=== PATIENT | female | born 1950 | race Caucasian/White ===

== ENCOUNTER 2020-11-16 22:09 | Inpatient (IN) | payer OTHER ==
[2020-11-16] MEDS ORDERED: MORPHINE 4 MG/ML SYR ONE (23:35)
[2020-11-16] MEDS ORDERED: ONDANSETRON 4 MG/2 ML VIAL ONE (23:35)
[2020-11-16] MEDS ORDERED: NA CHLORIDE 0.9% 1,000 ML ONE (23:36)
[2020-11-16] MEDS ORDERED: PANTOPRAZOLE 40 MG INJ ONE (23:36)
[2020-11-17 00:09] LABS: Basophils % 0.3 % (0-1.3); Hematocrit 43.1 % (36.0-45.0); Lymphocytes % 9.3 % (15.3-44.8); MPV 9.8 fL (7.6-11.3); RBC Red Blood Cell Count 5.26 M/uL (3.86-4.86)
[2020-11-17 00:10] LABS: Protime INR 0.98
[2020-11-17 00:24] LABS: ALT/SGPT 26 U/L (12-78); AST/SGOT 17 U/L (15-37); Albumin 4.1 g/dL (3.4-5.0); Alkaline Phosphatase 93 U/L (45-117); BUN Blood Urea Nitrogen 13 mg/dL (7-18); Bicarbonate 30 mmol/L (21-32); Bilirubin Direct 0.2 mg/dL (0-0.2); Bilirubin Total 0.5 mg/dL (0.2-1.0); Glucose Level 155 mg/dL (74-106); Lipase 148 U/L (73-393); Magnesium 2.1 mg/dL (1.8-2.4); NT PRO-BNP 44 pg/mL (<125); Potassium 3.5 mmol/L (3.5-5.1); Sodium Level 141 mmol/L (136-145); Troponin (Emerg Dept Use Only) < 0.02 ng/mL (0.0-0.045)
[2020-11-17 02:23] LABS: Blood Morphology Comment NOT SEEN (NOT SEEN); Platelet Estimate ADEQ
--- NOTE | 2020-11-17 02:24 | EDPHYS ---
Physician Documentation [facility] Name: Talisha Farr Age: 70 yrs Sex: Female : 1950 Arrival Date: 11/16/2020 Time: 22:12 Bed 15 Private MD: ED Physician Jaya Catalan HPI: 11/16 23:06 This 70 yrs old Female presents to ER via Wheelchair with complaints of Upper marion Abdmonial Pain. 23:06 The patient presents with abdominal pain in the epigastric area, in the upper abdomen. marion Onset: The symptoms/episode began/occurred just prior to arrival. The symptoms radiate to Associated signs and symptoms: Pertinent positives: nausea and vomiting. The symptoms are described as burning, constant. Modifying factors: The symptoms are alleviated by nothing, the symptoms are aggravated by food. Severity of pain: At its worst the pain was moderate in the emergency department the pain is unchanged. The patient has not experienced similar symptoms in the past. Historical: - Allergies: 22:26 Codeine; bb - Home Meds: 22:26 None [Active]; bb - PMHx: 22:26 None; bb - PSHx: 22:26 Hysterectomy; bb - Immunization history:: Adult Immunizations up to date. - Social history:: Smoking status: Patient denies any tobacco usage or history of. Patient uses alcohol, but reports only rare drinking. Patient/guardian denies using street drugs. - Family history:: not pertinent. ROS: 23:06 Constitutional: Negative for fever, chills, and weight loss, Eyes: Negative for injury, marion pain, redness, and discharge, ENT: Negative for injury, pain, and discharge, Neck: Negative for injury, pain, and swelling, Cardiovascular: Negative for chest pain, palpitations, and edema, Respiratory: Negative for shortness of breath, cough, wheezing, and pleuritic chest pain, Back: Negative for injury and pain, : Negative for injury, bleeding, discharge, and swelling, MS/Extremity: Negative for injury and deformity, Skin: Negative for injury, rash, and discoloration, Neuro: Negative for headache, weakness, numbness, tingling, and seizure, Psych: Negative for depression, anxiety, suicide ideation, homicidal ideation, and hallucinations, Allergy/Immunology: Negative for hives, rash, and allergies, Endocrine: Negative for neck swelling, polydipsia, polyuria, polyphagia, and marked weight changes. 23:06 Abdomen/GI: Positive for abdominal pain, nausea and vomiting, abdominal cramps, of the epigastric area and right upper quadrant. Exam: 23:06 Constitutional: This is a well developed, well nourished patient who is awake, alert, mairon and in no acute distress. Head/Face: Normocephalic, atraumatic. Eyes: Pupils equal round and reactive to light, extra-ocular motions intact. Lids and lashes normal. Conjunctiva and sclera are non-icteric and not injected. Cornea within normal limits. Periorbital areas with no swelling, redness, or edema. ENT: Nares patent. No nasal discharge, no septal abnormalities noted. Tympanic membranes are normal and external auditory canals are clear. Oropharynx with no redness, swelling, or masses, exudates, or evidence of obstruction, uvula midline. Mucous membranes moist. Neck: Trachea midline, no thyromegaly or masses palpated, and no cervical lymphadenopathy. Supple, full range of motion without nuchal rigidity, or vertebral point tenderness. No Meningismus. Chest/axilla: Normal chest wall appearance and motion. Nontender with no deformity. No lesions are appreciated. Cardiovascular: Regular rate and rhythm with a normal S1 and S2. No gallops, murmurs, or rubs. Normal PMI, no JVD. No pulse deficits. Respiratory: Lungs have equal breath sounds bilaterally, clear to auscultation and percussion. No rales, rhonchi or wheezes noted. No increased work of breathing, no retractions or nasal flaring. Back: No spinal tenderness. No costovertebral tenderness. Full range of motion. Female : Normal external genitalia. Skin: Warm, dry with normal turgor. Normal color with no rashes, no lesions, and no evidence of cellulitis. MS/ Extremity: Pulses equal, no cyanosis. Neurovascular intact. Full, normal range of motion. Neuro: Awake and alert, GCS 15, oriented to person, place, time, and situation. Cranial nerves II-XII grossly intact. Motor strength 5/5 in all extremities. Sensory grossly intact. Cerebellar exam normal. Normal gait. Psych: Awake, alert, with orientation to person, place and time. Behavior, mood, and affect are within normal limits. 23:06 Abdomen/GI: Inspection: distension, Bowel sounds: active, Palpation: mild abdominal tenderness, moderate abdominal tenderness, in the epigastric area, right upper quadrant and left upper quadrant, Liver: no appreciated palpable abnormalities, Hernia: not appreciated. 23:48 ECG was reviewed by the Attending Physician. [facility] Vital Signs: 22:24 BP 160 / 76; Pulse 58; Resp 16 S; Temp 97.6(O); Pulse Ox 98% on R/A; Weight 74.84 kg bb (R); Height 5 ft. 5 in. (165.10 cm) (R); Pain 10/10; 23:30 BP 143 / 86; Pulse 57; Resp 17; Pulse Ox 98% on R/A; jb4 11/17 02:30 BP 168 / 78; Pulse 68; Resp 16; Pulse Ox 95% on R/A; jb4 04:30 BP 165 / 78; Pulse 72; Resp 16; Pulse Ox 94% on R/A; jb4 10:06 BP 123 / 74; Pulse 72; Resp 16; Pulse Ox 94% on R/A; Pain 3/10; bw 11/16 22:24 Body Mass Index 27.46 (74.84 kg, 165.10 cm) bb MDM: 11/16 22:51 Patient medically screened. [facility] 23:14 Differential diagnosis: appendicitis, cholecystitis, Cholelithiasis, diverticulitis, marion gastritis, gastroesophageal reflux disease, Mesenteric ischemia or infarction, non-specific abd pain, pancreatitis, Peptic Ulcer Disease, Pyelonephritis, urinary tract infection. Data reviewed: vital signs, nurses notes, old medical records, lab test result(s), EKG, radiologic studies, CT scan, plain films. Data interpreted: shelter monitor: rate is 58 beats/min, rhythm is regular, Pulse oximetry: on room air is 98 %. Test interpretation: by ED physician or midlevel provider: ECG, plain radiologic studies. Counseling: I had a detailed discussion with the patient and/or guardian regarding: the historical points, exam findings, and any diagnostic results supporting the discharge/admit diagnosis, lab results, radiology results. 11/16 23:04 Order name: Basic Metabolic Panel [facility] 11/16 23:04 Order name: CBC with Diff [facility] 11/16 22: Order name: LFT's [facility] 03/08 23:04 Order name: Magnesium [facility] 11/16 23:04 Order name: NT PRO-BNP [facility] 11/16 23:04 Order name: PT-INR [facility] 11/16 23:04 Order name: Troponin (emerg Dept Use Only) [facility] 11/16 23:04 Order name: Lipase [facility] 11/16 23:04 Order name: Basic Metabolic Panel; Complete Time: 00:30 EDMS 11/16 23:04 Order name: CBC with Automated Diff EDRI 11/16 23:04 Order name: Liver (Hepatic) Function; Complete Time: 00:30 EDMS 11/16 23:04 Order name: Magnesium; Complete Time: 00:30 EDMS 11/16 23:04 Order name: NT PRO-BNP; Complete Time: 00:30 EDMS 11/16 23:04 Order name: XRAY Chest (1 view) [facility] 11/16 23:04 Order name: EKG; Complete Time: 23:05 [facility] 11/16 23:04 Order name: CT Abd/Pelvis - IV Contrast Only [facility] 11/16 23:04 Order name: Protime (+INR); Complete Time: 00:30 EDMS 11/16 23:04 Order name: Troponin (Emerg Dept Use Only); Complete Time: 00:30 EDMS 11/16 23:04 Order name: Lipase; Complete Time: 00:30 EDMS 11/17 00:24 Order name: Manual Differential EDRI 11/17 00:54 Order name: SARS-COV-2 RT PCR; Complete Time: 02:01 EDMS 11/17 07:12 Order name: Troponin I EDMS 11/17 07:21 Order name: Liver (Hepatic) Function EDMS 11/17 07:21 Order name: Lipase EDRI 11/16 23:04 Order name: Cardiac monitoring; Complete Time: 23:57 [facility] 11/16 23:04 Order name: EKG - Nurse/Tech; Complete Time: 23:58 [facility] 11/16 23:04 Order name: IV Saline Lock; Complete Time: 23:58 [facility] 11/16 23:04 Order name: Labs collected and sent; Complete Time: 23:58 [facility] 11/16 23:04 Order name: O2 Per Protocol; Complete Time: 23:58 [facility] 11/16 23:04 Order name: O2 Sat Monitoring; Complete Time: 23:58 [facility] 11/17 02:29 Order name: CONS Physician Consult; Complete Time: 07:46 EDMS EC:48 Rate is 54 beats/min. Rhythm is regular. QRS Cable is Normal. OH interval is normal. QRS marion interval is normal. QT interval is normal. No Q waves. T waves are Normal. No ST changes noted. Clinical impression: Sinus bradycardia and No evidence of ischemia. Interpreted by me. Reviewed by me. Administered Medications: 23:54 Drug: ProTONIX 40 mg Route: IVP; Site: right antecubital; jb4 23:56 Drug: NS 0.9% 1000 ml Route: IV; Rate: 1 bolus; Site: right antecubital; jb4 23:56 Drug: Zofran (Ondansetron) 4 mg Route: IVP; Site: right antecubital; jb4 23:58 Drug: morphine 4 mg Route: IVP; Site: right antecubital; jb4 11/17 02:42 Drug: Zosyn 3.375 grams Route: IVPB; Infused Over: 60 mins; Site: right antecubital; jb4 Disposition: 11/17/20 02:23 Hospitalization ordered by Rocky Dietrich for Inpatient Admission. Preliminary diagnosis are Abdominal tenderness, Cholecystitis, Cholelithiasis. - Bed requested for Telemetry/MedSurg (Inpatient). - Status is Inpatient Admission. hb - Condition is Stable. - Problem is new. - Symptoms have improved. Signatures: Dispatcher [employer] [facility] Candace Vega Jaya Catalan MD MD cha Ballard, Brenda, Bessie Paulino RN, RN RN Mattie Dalton RN RN Rocky Ross, BRIGITTE RN jb4 Corrections: (The following items were deleted from the chart) 00:08 0308 23:05 CORONAVIRUS+MR.LAB.BRZ ordered. EDRI EDRI 11/17 03:20 02:23 Hospitalization Ordered by Rocky Dietrich MD for Inpatient Admission. Preliminary cg diagnosis is Abdominal tenderness; Cholecystitis; Cholelithiasis. Bed requested for Telemetry/MedSurg (Inpatient). Status is Inpatient Admission. Condition is Stable. Problem is new. Symptoms have improved. marion 08:56 03:20 11/17/2020 02:23 Hospitalization Ordered by Rocky Dietrich MD for Inpatient bd Admission. Preliminary diagnosis is Abdominal tenderness; Cholecystitis; Cholelithiasis. Bed requested for [facility] ER HOLD. Status is Inpatient Admission. Condition is Stable. Problem is new. Symptoms have improved. cg 10:32 08:56 11/17/2020 02:23 Hospitalization Ordered by Rocky Dietrich MD for Inpatient hb Admission. Preliminary diagnosis is Abdominal tenderness; Cholecystitis; Cholelithiasis. Bed requested for Telemetry/MedSurg (Inpatient). Status is Inpatient Admission. Condition is Stable. Problem is new. Symptoms have improved. bd
--- NOTE | 2020-11-17 02:24 | ER ---
Nurse's Notes [facility] Name: Talisha Frar Age: 70 yrs Sex: Female : 1950 Arrival Date: 11/16/2020 Time: 22:12 Bed 15 Private MD: Diagnosis: Abdominal tenderness;Cholecystitis;Cholelithiasis Presentation: 11/16 22:24 Chief complaint: Patient states: she has been feeling ill today then tonight she bb started having upper abdominal pain and vomiting since approx 1900. Coronavirus screen: At this time, the client does not indicate any symptoms associated with coronavirus-19. Ebola Screen: No symptoms or risks identified at this time. Initial Sepsis Screen: Does the patient meet any 2 criteria? No. Patient's initial sepsis screen is negative. Does the patient have a suspected source of infection? No. Patient's initial sepsis screen is negative. Risk Assessment: Do you want to hurt yourself or someone else? Patient reports no desire to harm self or others. Onset of symptoms was November 16, 2020. 22:24 Method Of Arrival: Wheelchair bb 22:24 Acuity: WILLIAMS 3 bb Historical: - Allergies: 22:26 Codeine; bb - Home Meds: 22:26 None [Active]; bb - PMHx: 22:26 None; bb - PSHx: 22:26 Hysterectomy; bb - Immunization history:: Adult Immunizations up to date. - Social history:: Smoking status: Patient denies any tobacco usage or history of. Patient uses alcohol, but reports only rare drinking. Patient/guardian denies using street drugs. - Family history:: not pertinent. Screenin:50 Abuse screen: Denies threats or abuse. Nutritional screening: No deficits noted. jb4 Tuberculosis screening: No symptoms or risk factors identified. Fall Risk None identified. Assessment: 22:50 General: Appears in no apparent distress. uncomfortable, Behavior is calm, cooperative, jb4 appropriate for age. Pain: Complains of pain in epigastric area Pain radiates to back Pain currently is 10 out of 10 on a pain scale. Also complains of nausea, vomiting. Neuro: Level of Consciousness is awake, alert, obeys commands, Oriented to person, place, time, situation. Cardiovascular: Patient's skin is warm and dry. Respiratory: Airway is patent Respiratory effort is even, unlabored, Respiratory pattern is regular, symmetrical. GI: Abdomen is round non-distended, Reports upper abdominal pain, nausea, vomiting. : No signs and/or symptoms were reported regarding the genitourinary system. EENT: No signs and/or symptoms were reported regarding the EENT system. Derm: Skin is intact, Skin is pink, warm \T\ dry. Musculoskeletal: Circulation, motion, and sensation intact. Range of motion: intact in all extremities. 11/17 00:00 Reassessment: Patient appears in no apparent distress at this time. Patient and/or jb4 family updated on plan of care and expected duration. Pain level reassessed. Patient is alert, oriented x 3, equal unlabored respirations, skin warm/dry/pink. 01:00 Reassessment: Patient appears in no apparent distress at this time. Patient and/or jb4 family updated on plan of care and expected duration. Pain level reassessed. Patient is alert, oriented x 3, equal unlabored respirations, skin warm/dry/pink. 02:00 Reassessment: Patient appears in no apparent distress at this time. Patient and/or jb4 family updated on plan of care and expected duration. Pain level reassessed. Patient is alert, oriented x 3, equal unlabored respirations, skin warm/dry/pink. Patient states feeling better. 03:00 Reassessment: Patient appears in no apparent distress at this time. Patient and/or jb4 family updated on plan of care and expected duration. Pain level reassessed. Patient is alert, oriented x 3, equal unlabored respirations, skin warm/dry/pink. 04:00 Reassessment: Patient appears in no apparent distress at this time. Patient and/or jb4 family updated on plan of care and expected duration. Pain level reassessed. PT is resting in bed with eyes closed, respirations even and unlabored with no s/s of pain or distress noted. PT admitted to ER hold. 10:06 Reassessment: Patient appears in no apparent distress at this time. Patient and/or bw family updated on plan of care and expected duration. Pain level reassessed. Patient is alert, oriented x 3, equal unlabored respirations, skin warm/dry/pink. Vital Signs: 11/16 22:24 BP 160 / 76; Pulse 58; Resp 16 S; Temp 97.6(O); Pulse Ox 98% on R/A; Weight 74.84 kg bb (R); Height 5 ft. 5 in. (165.10 cm) (R); Pain 10/10; 23:30 BP 143 / 86; Pulse 57; Resp 17; Pulse Ox 98% on R/A; jb4 11/17 02:30 BP 168 / 78; Pulse 68; Resp 16; Pulse Ox 95% on R/A; jb4 04:30 BP 165 / 78; Pulse 72; Resp 16; Pulse Ox 94% on R/A; jb4 10:06 BP 123 / 74; Pulse 72; Resp 16; Pulse Ox 94% on R/A; Pain 3/10; bw 11/16 22:24 Body Mass Index 27.46 (74.84 kg, 165.10 cm) bb ED Course: 11/16 22:12 Patient arrived in ED. cl3 22:25 Triage completed. bb 22:26 Arm band placed on Patient placed in an exam room, on a stretcher, on pulse oximetry. bb Family accompanied patient. 22:50 Patient has correct armband on for positive identification. Placed in gown. Bed in low jb4 position. Call light in reach. Side rails up X 1. clinical business manager on. Pulse ox on. NIBP on. 22:51 Jaya Catalan MD is Attending Physician. [facility] 23:10 Rocky Ross, RN is Primary Nurse. 4 23:28 XRAY Chest (1 view) In Process Unspecified. EDMS 23:50 Initial lab(s) drawn, by ca, sent to lab. Inserted saline lock: 18 gauge in right jb4 antecubital area, using aseptic technique. Blood collected. 11/17 01:15 CT Abd/Pelvis - IV Contrast Only In Process Unspecified. EDMS 02:13 Rocky Dietrich MD is Hospitalizing Provider. [facility] 04:00 No provider procedures requiring assistance completed. Patient admitted, IV remains in jb4 place. Administered Medications: 11/16 23:54 Drug: ProTONIX 40 mg Route: IVP; Site: right antecubital; jb4 23:56 Drug: NS 0.9% 1000 ml Route: IV; Rate: 1 bolus; Site: right antecubital; jb4 23:56 Drug: Zofran (Ondansetron) 4 mg Route: IVP; Site: right antecubital; jb4 23:58 Drug: morphine 4 mg Route: IVP; Site: right antecubital; jb4 11/17 02:42 Drug: Zosyn 3.375 grams Route: IVPB; Infused Over: 60 mins; Site: right antecubital; jb4 Outcome: 02:23 Decision to Hospitalize by Provider. marion 04:00 Admitted to ER Hold. Please see [facility] for further documentation. jb4 04:00 Condition: stable 04:00 Discharge instructions given to patient, Instructed on the need for admit, Demonstrated understanding of instructions. 10:32 Patient left the ED. Signatures: Dispatcher [employer] EDMS Jaya Caatlan MD MD cha Ballard, Brenda, RN RN Mattie Klein RN RN Rocky Ross RN RN jb4 Lewis, Charde cl3 Lanny Kinsey RN RN
[2020-11-17] MEDS ORDERED: PIPER/TAZO/NS 3.375gm 3.375 GM/100 ML BAG ONE ×2 (02:39→08:51)
[2020-11-17] MEDS ORDERED: SODIUM CHLORIDE 0.9% 10ML INJ IV PRN (04:54)
[2020-11-17] MEDS ORDERED: ACETAMINOPHEN 325 MG TABLET PO PRN (04:54)
[2020-11-17] MEDS: NA CHLORIDE 0.9% 1,000 ML IV SCH ×4 (04:54→19:39)
[2020-11-17] MEDS: MORPHINE 4 MG/ML SYR IV PRN ×2 (05:13→08:56)
[2020-11-17] MEDS: ONDANSETRON 4 MG/2 ML VIAL IV PRN ×2 (05:13→11:47)
[2020-11-17] MEDS ORDERED: MORPHINE 4 MG/ML SYR ONE ×2 (05:18→08:50)
[2020-11-17] MEDS ORDERED: NA CHLORIDE 0.9% 1,000 ML ONE (05:19)
[2020-11-17] MEDS ORDERED: ONDANSETRON 4 MG/2 ML VIAL ONE ×2 (05:19→14:05)
[2020-11-17 06:26] VITALS: BMI 27.4
[2020-11-17 07:21] LABS: Albumin 3.9 g/dL (3.4-5.0); Bilirubin Direct 0.1 mg/dL (0-0.2); Bilirubin Total 0.5 mg/dL (0.2-1.0); Protein, Total 7.9 g/dL (6.4-8.2)
--- NOTE | 2020-11-17 07:48 | RAD REPORT ---
EXAM DESCRIPTION: Mayra Single View11/16/2020 11:28 pm CLINICAL HISTORY: Abdominal pain COMPARISON: none FINDINGS: The lungs appear clear of acute infiltrate. The heart is normal size IMPRESSION: No acute abnormalities displayed
[2020-11-17] MEDS ORDERED: PANTOPRAZOLE 40 MG INJ ONE (08:50)
[2020-11-17] MEDS ORDERED: NA CHLORIDE 0.9% 0 ML ONE (08:50)
[2020-11-17] MEDS: PANTOPRAZOLE 40 MG INJ IVP SCH (08:55)
[2020-11-17] MEDS: PIPER/TAZO/NS 3.375gm 3.375 GM/100 ML BAG IVPB SCH ×4 (08:56→18:25)
--- NOTE | 2020-11-17 11:33 | CON ---
Date of Consultation: 11/17/2020 Reason For Consultation: Cardiac clearance for cholecystectomy by Dr. Dietrich. History Of Present Illness: Ms. Farr is a 70-year-old white woman. She came in this morning gallstone, white count of for surgery today by Dr. Dietrich. I was asked to see her for cardiac clearance. The patient denied any cardiac history. She does not have high blood pressur e, diabetes, dyslipidemia. Denies any family history of heart disease. Denies tobacco use. Her [address] pain was midepigastric, radiating to the right quadrant, consistent with her cholecystitis. Had s ome nausea, but denied PND, orthopnea, pedal edema, palpitation, or syncope. Has had some chills, bu t no fever. By the time I saw her, her chest x-ray was normal, her EKG was unremarkable and troponin is negative. Past Medical History: Negative. Allergies: SHE IS ALLERGIC TO CODEINE. Review of Systems: Negative. Social History: Negative. Family History: Negative. Medications: At home were none. Physical Examination: General: Very pleasant lady. Vital Signs: Stable, afebrile. HEENT: Negative. Neck: Supple with no bruit. Chest: Clear to auscultation and percussion. Cardiac: Revealed a regular rhythm and rate. No murmurs, gallops, or rubs. Abdomen: Tender in the right upper quadrant. Extremities: No clubbing, cyanosis, or edema in extremities. Impression And Plan: This is a patient, who is 70. No past medical history. No cardiac history. N o cardiac symptoms. Normal physical examination, normal x-ray, normal troponin, unremarkable EKG. I think she is at low risk for perioperative mortality. I will clear the patient for surgery. I will be available for questions if the need arises. JEWEL/ELISE Voice ID: [id number] Report ID: [id number]
--- NOTE | 2020-11-17 11:58 | RAD REPORT ---
EXAM DESCRIPTION: CT - Abdomen Pelvis W Contrast - 11/17/2020 6:52 am COMPARISON: None. CLINICAL HISTORY: [facility] MAIN ABD PAIN TECHNIQUE: CT of the abdomen and pelvis was acquired with IV contrast material. Coronal and sagitt al reconstructions were obtained. Automated exposure control was utilized on this examination as a dose lowering technique. FINDINGS: Lung bases: A small calcified granuloma is noted in the right middle lobe. Liver: A 1.4 cm enhancing focus is noted in hepatic segment four on series 501 image 18. This appears to have portal and hepatic venous connections. Gallbladder and biliary: Multiple hypodense gallstones are noted. Pericholecystic fluid is noted. Mil dly dilated common bile duct measuring 9 mm. An intrahepatic biliary ductal dilatation is also noted. Pancreas: Normal. Spleen: Normal. Adrenal glands: Normal adrenal glands. Kidneys: Normal kidneys Stomach and Small Bowel: Moderate-sized hiatal hernia. Normal small bowel. Urinary bladder: Normal. Uterus and Adnexa: The uterus is absent or atrophic. Colon and Appendix: Moderate sigmoid diverticulosis is noted. No evidence of appendicitis. Retroperitoneum and lymph nodes: Normal. Vascular: Mild atherosclerosis. Peritoneal cavity: No ascites or free air. Musculoskeletal and soft tissues: Soft tissues are unremarkable. Lumbar spondylosis is present. No ag gressive bone lesions. No compression fracture. IMPRESSION: 1. Cholelithiasis with pericholecystic fluid and mild biliary ductal dilatation. These f indings could be seen with acute cholecystitis in the appropriate clinical setting. 2. A 1.4 cm enhancing lesion of hepatic segment four is favored to represent a vascular malformation with portosystemic shunt. Hemangioma and perfusion anomalies are alternative differential diagnoses. Neoplasm is less likely. 3. Moderate-sized hiatal hernia. 4. Moderate sigmoid diverticulosis. Electronically signed by: Jared Griffith MD 11/17/2020 1:56 AM [employer] SPECIALIST Due to temporary technical issues with the PACS/Fluency reporting system, reports are being signed by the in house radiologist without review as a courtesy to ensure prompt reporting. The interpreting r adiologist is fully responsible for the content of the report.
[2020-11-17] MEDS ORDERED: Ringers Lactate 1,000 ML IV ONE ×2 (13:46→15:13)
--- NOTE | 2020-11-17 14:03 | P.HP ---
Date of Service: 11/17/20
[2020-11-17] MEDS ORDERED: FENTANYL CITR 100 MCG/2 ML ONE (14:04)
[2020-11-17] MEDS ORDERED: ROCURONIUM 50 MG/5 ML VIAL IV ONE (14:05)
[2020-11-17] MEDS ORDERED: MIDAZOLAM HCL 2 MG/2 ML INJ ONE (14:05)
[2020-11-17] MEDS ORDERED: GLYCOPYRROLATE 0.2 MG/ML SYR ONE ×3 (14:05→15:55)
[2020-11-17] MEDS ORDERED: dexAMETHasone 10 MG/ML VIAL ONE (14:05)
[2020-11-17] MEDS ORDERED: LIDOCAINE 1% MPF 2 ML AMPULE ONE (14:05)
[2020-11-17] MEDS ORDERED: PROMETHAZINE INJ 25 MG/ML AMP ONE (14:05)
[2020-11-17] MEDS ORDERED: propofoL 200 MG/20 ML VIAL IV ONE (14:05)
[2020-11-17] MEDS ORDERED: KETOROLAC 30 MG/ML INJ ONE (15:49)
--- NOTE | 2020-11-17 15:52 | P.OP ---
Preoperative diagnosis: Acute cholecystitis with cholelithiasis Postoperative diagnosis: The same Primary procedure: Laparoscopic cholecystectomy Secondary procedure: Cholangiogram Other procedure(s): A Beto block Anesthesia: General Estimated blood loss: Less than 10 cc Specimen: 1 gallbladder and contents Operative Technique: The patient brought the operating room placed supine on the table or after the induction of adequate general endotracheal anesthesia the area of the abdomen was prepped with a DuraPrep solution and she is draped in usual aseptic manner a subumbilical incision was made this brought down through the skin and subcutaneous tissue. The Visiport was now used to enter the peritoneal cavity and created pneumoperitoneum to approximately 12 mm of mercury. Under direct vision a 5 mm trocar was placed in the upper midline, and 2 other 5 mm trocars on the right lateral side of the abdomen with the patient place a river in reverse Trendelenburg and rolled to the left were able to visualize right upper quadrant PC a rather intense inflammatory process occurring underneath the right lobe of the liver. The omentum was markedly adherent to the gallbladder itself you could tell being for a missed attachments as fluid could be seen between the peritoneal surfaces on the actual gallbladder itself at this point a Beto block was done of the anterior abdominal wall 0.25% Marcaine was used approximately 10 cc in total. The gallbladder was now aspirated by using a large aspirating needle . Thick bilious fluid with crystals were seen in this the fluid. The gallbladder now having being decompressed we could find a place a grasper on the fundus. Elevating the gallbladder showed these omental adhesions adherent to the serosal surface. There were markedly edematous. There were gently taken down using both blunt sharp dissection as well as judicious use of electro cautery. We identified Caroline's pouch. Gentle dissection allowed us to expose the cystic duct. We could see that the common bile duct was quite generous in size turned our dissection and we stayed well away from it. We finally obtained the critical view after applying lateral traction. The cystic duct and artery having been identified the cystic duct was gently palpated with a dissected to ensure there were no stones in the cystic duct itself. A clip was now placed between the gallbladder and the cystic duct. An opening was made into the cystic duct through which we obtained a normal intraoperative cholangiogram. The dye flowed freely both into the distal portion of the common bile duct and into the duodenum but also we were able to pressure injected and demonstrate the upper radicals. At this point the catheter was removed. The distal portion of the cystic duct was clipped with 2 clips to secure it. The cystic artery was dealt with in a similar fashion. The cystic duct was now fully transected. Electro cautery was used to divide the cystic artery. We now dissect the gallbladder free from the liver bed, placed into an Endo-Catch attention to bring it out through the umbilical trocar site because the amount of edema in this area, it was necessary at the emboli kiss. The specimen itself had difficulty trans reversing the skin incision. This was widened using 11 blade. Attention was now turned back towards the abdominal cavity. The right upper quadrant was inspected. It was irrigated with a copious amount of saline solution. The patient was now placed back flat on the OR table. Irrigating fluid was aspirated from the peritoneal cavity. Attention was turned back towards the emboli kiss. It was necessary to place 4 absorbable sutures at the level of the emboli kiss to approximate the defect. These were done using the Endo Stitch. At this point the pneumoperitoneum was now collapsed, this trocars removed, and tenzin applied to the skin. At the end of the procedure she was stable when sent to the recovery room. Needle sponge instrument count were reported as correct. Complications: None Transferred to: Recovery Room Condition: Good
[2020-11-17] MEDS ORDERED: NEOSTIGMINE 1 MG/ML -5 ML ONE (15:55)
--- NOTE | 2020-11-17 16:01 | RAD REPORT ---
EXAM DESCRIPTION: RAD - Cholangiogram Oper-Xray Or - 11/17/2020 3:53 pm FINDINGS: Three portable C-arm views were submitted from fluoroscopic assisted intraoperative cholan giogram. Assessment is limited when only selected sequences are available. Correlation is needed with findings during real-time assessment. Fluoro time was 0.2 minutes. Cumulative dose was 8.05 mGy.
[2020-11-18] MEDS: PIPER/TAZO/NS 3.375gm 3.375 GM/100 ML BAG IVPB SCH ×2 (00:16→08:42)
--- NOTE | 2020-11-18 05:05 | EKG ---
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
[2020-11-18] MEDS: NA CHLORIDE 0.9% 1,000 ML IV SCH (05:12)
[2020-11-18] MEDS: PANTOPRAZOLE 40 MG INJ IVP SCH (08:41)
[2020-11-18 10:54] VITALS: O2SAT 95
[2020-11-18 12:04] VITALS: BP 143/86; TEMP 97.6
--- NOTE | 2020-11-18 14:30 | P.DS ---
Admission Date: 11/18/20 Discharge Date: 11/18/20 Disposition: ROUTINE DISCHARGE Discharge Condition: GOOD Reason for Admission: Acute Postoperative abdominal pain Procedures: Laparoscopic cholecystectomy with intraoperative cholangiogram, Beto block Brief History of Present Illness: The patient has been ill for the last few months. She is had intermittent bouts of right upper quadrant abdominal pain a severe bout which was unrelenting and she came to the emergency room for evaluation treatment. Hospital Course: The patient was evaluated in the emergency room. She was found have acute on chronic cholecystitis with cholelithiasis. There was a question of possible common bile duct dilatation. She was admitted for IV fluids antibiotics, and pain control. She was evaluated the following day and taken to the operating room for a laparoscopic cholecystectomy with intraoperative cholangiogram. The patient tolerated the procedure well, and the cholangiogram was negative. Today she feels 100% better, has been up ambulating, tolerating a diet, and her pain is controlled without any medication (patient did have a Beto block). She has been deemed fit for discharge. Vital Signs/Physical Exam: Temp Pulse Resp BP Pulse Ox 97.6 F 63 18 143/86 H 97 11/18/20 12:00 11/18/20 12:00 11/18/20 12:00 11/18/20 12:00 11/18/20 12:00 Gastrointestinal: Other (Incisions are clean and dry) Laboratory Data at Discharge: WBC 11.10 K/uL (4.3-10.9) H 11/16/20 23:50 Hgb 14.0 g/dL (12.0-15.0) 11/16/20 23:50 Hct 43.1 % (36.0-45.0) 11/16/20 23:50 Plt Count 200 K/uL (152-406) 11/16/20 23:50 PT 11.3 SECONDS (9.5-12.5) 11/16/20 23:50 INR 0.98 11/16/20 23:50 Sodium 141 mmol/L (136-145) 11/16/20 23:50 Potassium 3.5 mmol/L (3.5-5.1) 11/16/20 23:50 BUN 13 mg/dL (7-18) 11/16/20 23:50 Creatinine 0.81 mg/dL (0.55-1.3) 11/16/20 23:50 Glucose 155 mg/dL (74-106) H 11/16/20 23:50 Magnesium 2.1 mg/dL (1.8-2.4) 11/16/20 23:50 Total Bilirubin 0.5 mg/dL (0.2-1.0) 11/17/20 06:40 AST 17 U/L (15-37) 11/17/20 06:40 ALT 27 U/L (12-78) 11/17/20 06:40 Alkaline Phosphatase 94 U/L (45-117) 11/17/20 06:40 Troponin I < 0.02 ng/mL (0.0-0.045) 11/17/20 11:06 Lipase 82 U/L (73-393) 11/17/20 06:40 Home Medications: NK [No Home Meds] 11/17/20 Physician Discharge Instructions: Ambulated home, diet as tolerated. She may shower. Change dressings as needed. Continue deep breathing exercises. Milk of magnesium p.r.n.. Call my office for an appointment for next Monday or Monday. Any questions or problems, go to the emergency room, or contact me. Diet: Regular Activity: Ad flori Followup: Rocky Dietrich MD [ACTIVE - CAN ADMIT] -
--- NOTE | 2020-11-19 05:18 | EKG ---
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
== END 2020-11-18 15:24 | disposition home or self-care (01) | DRG 419 ==
LOC: ER 22:09 → ERHOLD 11-17 02:31 → 4TH 11-17 10:14 → OBSVTOIN 11-18 08:10
PROVIDERS: ADMIT Surgery; ATTEND Surgery
PROC: BF522Z0 Other Imaging of Gallbladder using Fluorescing Agent, Intraoperative (ICD-10-PCS; 2020-11-17)
PROC: 0FT44ZZ Resection of Gallbladder, Percutaneous Endoscopic Approach (ICD-10-PCS; principal; 2020-11-17 14:00)
DX: K80.12 Calculus of gallbladder with acute and chronic cholecystitis without obstruction (principal); Z88.5 Allergy status to narcotic agent; Z90.710 Acquired absence of both cervix and uterus; Z20.822 Contact with and (suspected) exposure to COVID-19
CPT/HCPCS: 36415; 71045; 74177; 74300; 80048; 80076; 83690; 83735; 83880; 84484; 85025; 85610; 88304; 93005; 96374; 96375; 99285; C9113; G0378; J1100; J2001; J2250; J2405; J2543; J2550; J2704; J2710; J3010; J7030; J7120; Q9967; U0003